=== PATIENT | female | born 1980 | race Asian ===

== ENCOUNTER 2024-02-23 19:59 | Emergency (ER) | payer MEDICAID, SELFPAY ==
[2024-02-23 20:00] VITALS: BMI 22.3
[2024-02-23 20:42] VITALS: BP 143/82; PULSE 86; RESP 16; TEMP 36.8; O2SAT 98
[2024-02-23] MEDS: ACETAMINOPHEN 500 MG TABLET PO (21:58)
[2024-02-23] MEDS: DEXAMETHASONE SOD PHOS INJ 10 MG/ML VIAL PO (21:59)
--- NOTE | 2024-02-23 22:16 | PD.EDURI ---
Upper Respiratory Inf. RME/HPI General Chief Complaint: Flu Like Symptoms Stated Complaint: COUGH,BEAVER Time Seen by Provider: 02/23/24 21:49 Arrival date/time: 02/23/24 19:59 43F with no significant PMH presents to ED with 2 days of cough, nasal congestion, and BEAVER. Limitations: no limitations Related Data Allergies Allergy/AdvReac Type Severity Reaction Status Date / Time No Known Allergies Allergy Verified 02/23/24 20:01 Review of Systems Review of Systems Systems Reviewed: All systems reviewed, normal except as documented Constitutional Constitutional: Reports system reviewed and no additional complaints, except as documented, Reports as per HPI, Denies fever(s) and Reports headache(s) ENT Ears, Nose, Mouth, and Throat: Reports as per HPI, Denies disequilibrium, Reports headache(s) and Reports nasal congestion Cardiovascular Cardiovascular: Reports system reviewed and no additional complaints, except as documented, Denies chest pain and Denies dyspnea Respiratory Respiratory: Reports system reviewed and no additional complaints, except as documented, Reports as per HPI, Reports cough and Denies dyspnea Gastrointestinal Gastrointestinal: Reports system reviewed and no additional complaints, except as documented, Denies abdominal pain, Denies nausea and Denies vomiting Neurologic Neurologic: Reports system reviewed and no additional complaints, except as documented, Denies confusion, Denies disequilibrium and Reports headache(s) Psychiatric Psychiatric: Denies confusion Past Medical History Social History SMOKING STATUS: Never smoker ED Exam General Limitations: Present no limitations General appearance: Present alert and in no apparent distress Head Head exam: Present atraumatic Eye Eye exam: Present normal appearance, PERRL and EOMI ENT ENT exam: Present normal exam, normal oropharynx and mucous membranes moist Neck Neck exam: Present normal inspection, full ROM and trachea midline Chest Chest inspection: Present normal inspection and symmetric chest wall rise Respiratory Respiratory exam: Present normal lung sounds bilaterally Cardiovascular Cardiovascular exam: Present regular rate, normal rhythm and normal heart sounds Abdominal Exam Abdominal exam: Present soft and normal bowel sounds Extremities Exam Extremities exam: Present normal inspection and full ROM Back Exam Back exam: Present normal inspection and full ROM Neurological Exam Neurological exam: Present alert, oriented X3 and CN II-XII intact Psychiatric Psychiatric exam: Present normal affect and normal mood Skin Skin exam: Present warm, dry, intact and normal color Course Quality Measures none Orders Category Date Time Status Bedside Influenza A&B Antigen Test NOW Care 02/23/24 20:00 Completed Acetaminophen Tab [Tylenol ES Tab] Med 02/23/24 21:49 Discontinued 500 mg PO X1 ONE Dexamethasone Inj [Decadron Inj] Med 02/23/24 21:49 Discontinued 10 mg PO X1 ONE Vital Signs Vital signs: Vital Signs Temperature 98.3 F 02/23/24 20:42 Pulse Rate 86 02/23/24 20:42 Respiratory Rate 16 02/23/24 20:42 Blood Pressure 143/82 H 02/23/24 20:42 Pulse Oximetry (%) 98 02/23/24 20:42 Oxygen Delivery Method Room Air 02/23/24 20:42 O2 at 98% on RA and WNLs Upper Respiratory Infection MDM Narrative MDM Narrative:: 43F with no significant PMH presents to ED with 2 days of cough, nasal congestion, and BEAVER. Physical exam reveals nasal congestion, but otherwise clear ENT and lungs. Normal pupil response and EOM. No neck tenderness. ROM intact. Patient is afebrile, calm, and alert. Swabs neg. Likely viral URI +/- sinusitis. Patient data External records reviewed:: None Clinical information provided by:: patient Social determinants that could affect healthcare access:: none Patient has the following chronic illnesses:: none How is presenting disease/condition affected by chronic disease/condition?: no chronic disease Evaluation data The following diagnostics were reviewed and interpreted by me:: lab results Lab and/or radiology exams considered but not ordered:: ordered Interpretation Summary: above Medications / Prescriptions Medications or Prescriptions considered but not ordered:: ordered Medication administrations:: Medication Administration History Discontinued Medications Acetaminophen (Acetaminophen 500 Mg Tablet) 500 mg PO X1 ONE Stop: 02/23/24 21:50 Last Admin: 02/23/24 21:58 Dose: 500 mg Documented By: DD Dexamethasone Sodium Phosphate (Dexamethasone Sod Phos Inj 10 Mg/Ml Vial) 10 mg PO X1 ONE Stop: 02/23/24 21:50 Last Admin: 02/23/24 21:59 Dose: 10 mg Documented By: DD above Consultations Consultation(s) initiated? (list below): No Diagnosis Upper Respiratory Differential Diagnosis: upper respiratory infection, croup, otitis media, sinusitis, viral infection, bronchitis, influenza and pharyngitis Most likely diagnosis given after review of the tests above:: URI and sinusitis Admission Indicated Admission indicated?: not indicated Explain why admission is indicated or not indicated:: outpatient Admission Request Was there a request for admission?: No Disposition Plan Disposition Plan: Discharge Discharge Attestation Discharge Attestation: The patient and all family members were given an opportunity to ask questions and understood the discharge instructions. Discharge instructions specifically effects, indications for sooner follow up or return to the emergency department, and the expected course of current diagnosis. Patient condition: Stable Discharge Plan Plan Patient Disposition: HOME (Self Care) Disposition Comment: Stable Problem List Clinical Impression: Upper respiratory infection, Sinusitis Patient/Caregiver Discharge Instructions Education Materials: ED Sinusitis (No Antibiotics), ED URI, Viral, No Abx (Adult) Additional Instructions: Please follow-up with PCP within 24-48 hours and return immediately if symptoms worsen. Ibuprofen/Tylenol can be used simultaneously for greater fever/pain control Benadryl is good for cough, congestion, and sleep. Print Language: Congolese Stand Alone Forms: Work/School Release, Patient Portal Info Letter LINDSAY/ANA Supervising Physician LINDSAY/ANA Supervising Physician: Dr. Manning
== END 2024-02-23 22:10 | disposition home or self-care (01) ==
LOC: SERX 22:15
PROVIDERS: Emergency Provider Emergency Medicine
DX: J01.90 Acute sinusitis, unspecified (principal)
CPT/HCPCS: 87400; 99283; J1100; A9270